=== PATIENT | female | born 1960 | race Caucasian/White ===

== ENCOUNTER 2017-06-08 13:37 | Emergency (ER) | payer BC ==
--- NOTE | 2017-06-08 13:49 | EDPHY ---
H & P Stated Complaint: N,V,HEMATURIA Source: Patient, Family () Exam Limitations: No limitations - Personal History Current Tetanus/Diphtheria Vaccine: Unsure Current Tetanus Diphtheria and Acellular Pertussis (TDAP): Unsure - Medical/Surgical History Hx Asthma: No Hx Chronic Respiratory Disease: No Hx Diabetes: No Hx Cardiac Disease: No Hx Renal Disease: No Hx Cirrhosis: No Hx Alcoholism: No Hx HIV/AIDS: No Hx Splenectomy or Spleen Trauma: No Other PMH: UTI - Social History Smoking Status: Never smoked Time Seen by Provider: 06/08/17 13:48 HPI/ROS: HPI: This is a 56-year-old female presents with Chief Complaint: N,V, HEMATURIA Location: GI/ Quality: n, v, blood in urine Duration: 2-3 weeks Signs and Symptoms: no fever, no nausea, no vomiting, no hematemesis, no blood in stool, no abdominal bloating, no diarrhea, no back pain, no urinary symptoms , no vaginal bleeding/discharge, no indigestion, no chest pain, no shortness of breath Timing: Worsening Severity: Moderate to severe Context: Patient presents the urging of Dr. Can to go to the emergency room for further evaluation of nausea, vomiting, and hematuria intermittently since 05/19/2017. She has been on 2 rounds of antibiotics; Macrobid on 05/20/2017, Cipro started 06/02/2017 and has 2 days left. She had an abdominal x-ray and CT abdomen and pelvis with and without contrast prior to arrival in the emergency room. She does not know the results of these images and has brought them for us to evaluate. She reports in the last week she started to developed right flank constant, moderate pain. Last night she developed chills to the point her had to hold her get her to stop shaking. Has not had any fevers, diarrhea, vaginal bleeding, vaginal discharge, shortness of breath, chest pain, blood in stool, hemoptysis. No prior hx kidney stones. Patient denies actual burning with urination, urinary frequency or urinary hesitancy. Symptoms have been going on since 05/15/2017. Last pelvic exam/Pap smear was approximately 4 years ago and within normal limits per patient. Patient already has an appointment scheduled with [facility] at 1:30 p.m. tomorrow. Modifying Factors: See above Comment: ROS: see HPI Constitutional: No fever, + chills, no weight loss Eyes: No blurred vision Respiratory: No shortness of breath, no cough Cardiovascular: No chest pain, no palpitations Gastrointestinal: + nausea, + vomiting, no diarrhea, no hematemesis, no blood in stool Genitourinary: No dysuria, + blood in urine Extremities: No myalgias, no edema Neurologic: No weakness, no numbness Skin: No rashes, no petechiae Hematologic: No bruising, no bleeding MEDICAL/SURGICAL/SOCIAL HISTORY: Medical history: Recurrent UTI. Does not take any regular medications. Surgical history: Denies Social history: . CONSTITUTIONAL: Ill-appearing but nontoxic adult white female, awake and alert , no obvious distress HEENT: Atraumatic and normocephalic, PERRL, EOMI. Tympanic membranes clear. Oropharynx clear, no exudate and moist pink mucosa. Airway patent. No lymphadenopathy. No meningismus. Cardiovascular: Normal S1/S2, regular rate, regular rhythm, without murmur rub or gallop. PULMONARY/CHEST: Symmetrical and nontender. Clear to auscultation bilaterally. Good air movement. No accessory muscle usage. ABDOMEN: Soft, nondistended, nontender, no rebound, no guarding, no peritoneal signs, no masses or organomegaly. Right CVAT. EXTREMITIES: 2/2 pulses, strength 5/5, no deformities, no clubbing, no cyanosis or edema. NEUROLOGICAL: no focal neuro deficits. GCS 15. SKIN: Warm and dry, no erythema. no rash. Good capillary refill. ([place]) Constitutional: Initial Vital Signs Temperature (C) 36.9 C 06/08/17 13:39 Heart Rate 94 06/08/17 13:39 Respiratory Rate 20 06/08/17 13:39 Blood Pressure 142/81 H 06/08/17 13:39 O2 Sat (%) 99 06/08/17 13:39 O2 Delivery Mode Room Air Allergies/Adverse Reactions: meperidine [From Demerol] Allergy (Verified 06/08/17 13:43) morphine Allergy (Verified 06/08/17 13:43) penicillin G Allergy (Verified 06/08/17 13:43) Sulfa (Sulfonamide Antibiotics) Allergy (Verified 06/08/17 13:43) Home Medications: Medication Instructions Recorded Cipro 500 mg 06/08/17 Ketorolac Tromethamine [Toradol] 10 mg PO Q6H 3 Days #12 tab 06/08/17 Ondansetron Odt [Zofran Odt 4 mg 4 mg PO Q4 PRN #20 tab 06/08/17 (*)] Tamsulosin HCl [Flomax 0.4 MG (*)] 0.4 mg PO DAILY #7 cap 06/08/17 oxyCODONE/APAP 5/325 [Percocet 1 - 2 tab PO Q4H PRN #20 tab 06/08/17 5/325 (*)] Medical Decision Making ED Course/Re-evaluation: I evaluated this patient with Susana Cardenas. I agree with the plan. This patient does not have an infection in her urine. She has a stone. She is comfortable. She can go home this point follow up with Urology. (Kevin Balderas) Will evaluate patient for sepsis- urinary versus abdominal source; given 1.6 liters normal saline, IV Zofran and IV Dilaudid upon arrival Reluctant to repeat CT abdomen and pelvis with contrast as performed today; called over to [facility] to have radiology report sent to us 1515: Labs reviewed; leukocytosis with left shift. Lactic acid 1.6. Creatinine 1.1 and was 0.7 on 06/02/2017 consistent with acute renal insufficiency 1540: Called by Dr. Suarez; who advised that there is a stone in the right ureter; Flomax and IV Toradol given. Reassessed patient who reports that pain is substantially better and denies any nausea. Still awaiting urinalysis. 1550: Reviewed CT abdomen and pelvis scan that shows 5 mm right UVJ stone with moderate right hydronephrosis, small wedge-shaped stones of abnormal attenuation the right renal cortex could be related to obstruction versus developing pyelonephritis. Given IV Rocephin due to radiologist reading for possible early pyelonephritis; patient has been on 2 different antibiotics including ciprofloxacin for complete course and doubt actual pyelonephritis. Urinalysis does not show signs of infection; does show blood and RBCs consistent with ureteral stone. Long discussion with patient/ admission for observation and further management versus outpatient management. Patient is tolerating p.o. and pain is controlled. She prefers to be managed outpatient as she has close follow-up with Urology tomorrow 1:30 p.m. This patient was seen under the supervision of my secondary supervising physician. I evaluated care for this patient independently. Discussed this patient with Dr. Balderas who did not see the patient. Patient's presentation, labs/imaging, treatment and plan of care were discussed with secondary supervising physician. (Susana Cardenas) Differential Diagnosis: Abdominal pain including but not limited to appendicitis, pyelonephritis, cholecystitis, gastritis, sepsis and urinary tract infection. (Susana Cardenas) - Data Points Laboratory Results: Laboratory Results 06/08/17 14:30 06/08/17 14:30 Medications Given: Discontinued Medications Hydromorphone HCl (Dilaudid) 1 mg IVP EDNOW ONE Stop: 06/08/17 13:57 Last Admin: 06/08/17 14:31 Dose: 1 mg Sodium Chloride (Ns) 1,000 mls @ 0 mls/hr IV ONCE ONE; Wide Open PRN Reason: Protocol Stop: 06/08/17 13:56 Last Admin: 06/08/17 14:32 Dose: 1,000 mls Sodium Chloride (Ns) 1,000 mls @ 0 mls/hr IV EDNOW ONE; Wide Open PRN Reason: Protocol Stop: 06/08/17 14:35 Last Admin: 06/08/17 16:33 Dose: Not Given Sodium Chloride (Ns) 600 mls @ 0 mls/hr IV EDNOW ONE; Wide Open PRN Reason: Protocol Stop: 06/08/17 14:35 Last Admin: 06/08/17 16:23 Dose: 600 mls Ceftriaxone Sodium/Dextrose (Rocephin 1 Gm (Premix)) 50 mls @ 100 mls/hr IV EDNOW ONE PRN Reason: Protocol Stop: 06/08/17 16:18 Last Admin: 06/08/17 16:30 Dose: 50 mls Ketorolac Tromethamine (Toradol) 15 mg IVP EDNOW ONE Stop: 06/08/17 15:47 Last Admin: 06/08/17 15:51 Dose: 15 mg Ondansetron HCl (Zofran) 4 mg IVP EDNOW ONE Stop: 06/08/17 14:05 Last Admin: 06/08/17 14:31 Dose: 4 mg Tamsulosin HCl (Flomax) 0.4 mg PO EDNOW ONE Stop: 06/08/17 15:47 Last Admin: 06/08/17 15:51 Dose: 0.4 mg Departure - Departure Disposition: Home, Routine, Self-Care Clinical Impression: Right ureteral stone, Hydronephrosis of right kidney Condition: Fair Instructions: Renal Colic (ED), Kidney Infection (ED), Ureteral Stones (ED) Additional Instructions: Consume a minimum of 8-10 glasses of water or electrolyte fluid replacement drinks that include Gatorade, Powerade, Pedialyte. Eat a bland diet for the next 48 hours and then slowly advance as tolerated. Please complete Cipro as directed. Take Toradol every 6 hr with food until you pass the stone but not to exceed 3 days. Take Zofran every 4 hr as needed for nausea vomiting. Take Percocet 1-2 tabs every 4 hr as needed for severe/breakthrough pain. Please remain as active as possible. Keep follow-up appointment with [facility] tomorrow at 1:30 p.m.. Return to the Emergency Room if symptoms do not resolve in the next [id number] hours, you spike a fever > 102 F, or experience intractable abdominal pain/ nausea/vomiting. Referrals: Dhara Can MD [Primary Care Provider] - As per Instructions Corby Simmons MD [Medical Doctor] - 06/09/17 1:30 pm Prescriptions: Ketorolac Tromethamine [Toradol] 10 mg PO Q6H 3 Days #12 tab Ondansetron Odt [Zofran Odt 4 mg (*)] 4 mg PO Q4 PRN #20 tab PRN Reason: Nausea/Vomiting, Can'T Take Po oxyCODONE/APAP 5/325 [Percocet 5/325 (*)] 1 - 2 tab PO Q4H PRN #20 tab PRN Reason: Pain, Severe Tamsulosin HCl [Flomax 0.4 MG (*)] 0.4 mg PO DAILY #7 cap
[2017-06-08] MEDS ORDERED: NS 1,000 ML IV ONE ×2 (13:55→14:34)
[2017-06-08] MEDS ORDERED: HYDROmorphONE/DILAUDID 1 MG/ML INJ IVP ONE (13:56)
[2017-06-08] MEDS ORDERED: ONDANSETRON 4 MG/2 ML VIAL IVP ONE (14:04)
[2017-06-08] MEDS ORDERED: NS 600 ML IV ONE (14:34)
[2017-06-08 14:52] LABS: PLATELET COUNT 178 10^3/uL (150-400)
[2017-06-08] MEDS ORDERED: KETOROLAC 15 MG/1 ML SDV IVP ONE (15:46)
[2017-06-08] MEDS ORDERED: TAMSULOSIN HCL 0.4 MG CAP PO ONE (15:46)
[2017-06-08 16:29] VITALS: BP 124/73
[2017-06-08 17:10] VITALS: PULSE 90; RESP 16; TEMP 98.6; O2SAT 96
== END 2017-06-08 17:00 | disposition home or self-care (01) ==
DX: N20.1 Calculus of ureter (principal); N13.30 Unspecified hydronephrosis; E86.9 Volume depletion, unspecified
CPT/HCPCS: 96365; J0696; J1170; J1885; J2405

== ENCOUNTER → 2018-03-17 | Outpatient (CLI) | payer BC | LOC: FIMAGING 08:28 | PROVIDERS: ATTEND Family Medicine | DX: Z12.31 Encounter for screening mammogram for malignant neoplasm of breast (principal) ==